=== PATIENT | female | born 1995 | race Caucasian/White ===

== ENCOUNTER 2023-05-11 11:30 | Outpatient (AMB) | payer OTHER, SELFPAY ==
[2023-05-11 12:13] VITALS: BP 100/64; PULSE 70; TEMP 36.4; O2SAT 99; BMI 27.8
--- NOTE | 2023-05-11 12:13 | MHC.OFFWIV ---
Intake Vital Signs 05/11/23 12:13 Height 5 ft 2 in Weight 152 lb 4 oz BMI 27.8 BP 100/64 Blood Pressure Location Lt brachial Position Sitting Pulse 70 Pulse Source Pulse Oximeter Temp 97.6 F Temp Source Temporal Artery Scan Pulse Oximetry (%) 99 Oxygen Delivery Method Room Air Intake Visit Reasons: EP, Spider bite on left foot, swelling Intake Note: Pt is here c/o spider bite on her left foot. Pt states it was been swollen for the past day. Allergies No Known Allergies [No Known Allergies*] Allergy (Verified 05/11/23 12:45) Medication List - Last Reconciled 05/11/23 by Gamaliel Geller MD PNV,calcium 63-chjd-nilzh acid 27 mg iron- 1 mg (M-Bolivar Plus) 0 tabs PO pyridoxine (vitamin B6) (Vitamin B-6) 25 mg PO TID Do you need a note to return to daycare/school/sports/work: No HPI EP, Spider bite on left foot, swelling HPI Details 27-year-old female presents to the office for a sick visit. Patient has a swelling on the dorsum of the foot. She was working in the garden yesterday. Physical Exam Vital Signs: Last Vital Signs Temp 97.6 F 05/11/23 12:13 Pulse 70 05/11/23 12:13 BP 100/64 05/11/23 12:13 Pulse Ox 99 05/11/23 12:13 Oxygen Delivery Method Room Air 05/11/23 12:13 BMI result Body Mass Index 27.8 Extrem Other: Left foot: Dorsum of the foot: Erythematous vesicular rash. 4 centimetres in size. Assessment & Plan Assessment & Plan (1) Contact dermatitis: Code(s): L25.9 - Unspecified contact dermatitis, unspecified cause Plan: Prednisone called in. If symptoms do not improve to follow-up here. Coding Level of Care Code Est Pt Level 3 (77540) Diagnoses Contact dermatitis L25.9
== END 2023-05-11 13:24 | disposition home or self-care (01) ==
PROVIDERS: Visit Provider Internal Medicine
DX: L25.9 Unspecified contact dermatitis, unspecified cause (principal)
CPT/HCPCS: 99213